=== PATIENT | female | born 1945 | race Caucasian/White ===

== ENCOUNTER → 2016-05-20 | Outpatient (CLI) | payer OTHER ==
--- NOTE | 2016-05-21 07:49 | XR ---
EXAMINATION TYPE: XR Hip Complete RT DATE OF EXAM: 05/20/2016 2:58 PM CLINICAL HISTORY: pain TECHNIQUE: AP and frogleg views of the right hip are obtained. COMPARISON: None. FINDINGS: There is no acute fracture/dislocation evident. The joint space appears moderately to se verely narrowed. The overlying soft tissue appears unremarkable. IMPRESSION: 1. There is no acute fracture or dislocation. ICD 10 NO FRACTURE, INITIAL EVALUATION
--- NOTE | 2016-05-21 07:49 | XR ---
EXAMINATION TYPE: XR lumbosacral spine min 4V DATE OF EXAM: 05/20/2016 2:58 PM CLINICAL HISTORY: pain COMPARISON: NONE TECHNIQUE: Frontal, lateral, and oblique images of the lumbar spine are obtained. FINDINGS: There are 5 lumbar type vertebral bodies identified. The lumbar spine shows satisfactory alignment without evidence of acute fracture or dislocation. Vertebral body heights are within normal limits. Severe multilevel degenerative disc disease is noted with vacuum disc seen at most levels. G rade 1 anterolisthesis L4 on L5 of 3.8 mm. Severe lower lumbar facet joint arthropathy. The overlyi ng soft tissue appears unremarkable. IMPRESSION: No acute fracture or dislocation is seen in the lumbar spine. Severe degenerative change s as noted. ICD 10 NO FRACTURE, INITIAL EVALUATION
== END | disposition home or self-care (01) ==
LOC: RADXRYALE 14:37
PROVIDERS: ATTEND Nurse Practitioner
DX: M47.816 Spondylosis without myelopathy or radiculopathy, lumbar region (principal); M25.551 Pain in right hip
CPT/HCPCS: 72110; 73502

== ENCOUNTER → 2016-06-22 | Outpatient (CLI) | payer OTHER ==
[2016-06-22 14:17] LABS: EKG EKG PERFORMED
[2016-06-22 15:21] LABS: Basophils % (A) 1 %; CH 30.5; CHCM 33.4; Eosinophils # (A) 0.1 k/uL (0-0.7); Eosinophils % (A) 2 %; HCT 37.5 % (34.0-46.0); HDW 2.52; HGB 12.3 gm/dL (11.4-16.0); Luc # (Auto) 0.11; Luc % (Auto) 2; Lymphocytes % (A) 19 %; MCHC 32.8 g/dL (31.0-37.0); MCV 91.6 fL (80.0-100.0); Mean Platelet Volume 7.4; Monocytes # (A) 0.3 k/uL (0-1.0); Monocytes % (A) 5 %; Neutrophils # (A) 3.8 k/uL (1.3-7.7); Neutrophils % (A) 71 %; RDW 12.7 % (11.5-15.5); WBC 5.3 k/uL (3.8-10.6); WBC (Perox) 5.56
[2016-06-22 15:31] LABS: ALT 37 U/L (9-52); AST 25 U/L (14-36); Alkaline Phosphatase 68 U/L (38-126); Anion Gap 12 mmol/L; Blood Urea Nitrogen 30 mg/dL (7-17); Calcium 9.4 mg/dL (8.4-10.2); Carbon Dioxide 28 mmol/L (22-30); Chloride 103 mmol/L (98-107); Glucose 83 mg/dL (74-99); Non-African American GFR(MDRD) >60 (>60 ml/min/1.73 sqM); Potassium 4.3 mmol/L (3.5-5.1); Sodium 143 mmol/L (137-145); Total Bilirubin 0.9 mg/dL (0.2-1.3); Total Protein 7.2 g/dL (6.3-8.2)
[2016-06-22 15:32] LABS: Partial Thromboplastin Time 24.5 sec (22.0-30.0); Prothrombin Time 10.4 sec (9.0-12.0)
[2016-06-22 17:19] LABS: Appearance,Urine Clear (Clear); Bilirubin,Urine Negative (Negative); Glucose,Urine (UA) Negative (Negative); Ketones,Urine Negative (Negative); Leukocyte Esterase,Urine Negative (Negative); Nitrite,Urine Negative (Negative); PH, Urine 5.5 (5.0-8.0); Protein,Urine Negative (Negative); Specific Gravity,Urine 1.022 (1.001-1.035); UA Billing (MACRO vs. MICRO) CHEM; Urobilinogen,Urine <2.0 mg/dL (<2.0)
== END | disposition home or self-care (01) ==
LOC: LABPAT 13:28
PROVIDERS: ATTEND Orthopaedic Surgery
DX: Z01.812 Encounter for preprocedural laboratory examination (principal); Z01.810 Encounter for preprocedural cardiovascular examination
CPT/HCPCS: 80053; 81003; 85025; 85610; 85730; 87070; 93005

== ENCOUNTER 2016-06-29 06:03 | Inpatient (IN) | payer OTHER ==
[2016-06-26 13:04] VITALS: BMI 39.6
[~2016-06-29 06:03] MED LIST: ACETAMINOPHEN TAB 500 MG TAB PO ONE; FAMOTIDINE 20 MG/2 ML VIAL IV PRN; HYDROmorphone 1 MG/ML 1 ML SYRINGE IVP PRN; LACTATED RINGERS 1,000 ML IV SCH; LIDOCAINE 1% 20 ML VIAL (10MG/ML) FOR IV START INTRADERMA PRN; MELOXICAM 7.5 MG TAB PO ONE; MIDAZOLAM 2 MG/2 ML VIAL IV PRN; ONDANSETRON 4 MG/2 ML VIAL IVP PRN; Pre Op ABX Message 1 EACH MISC MISCELLANE ONE; TRANEXAMIC ACID 1,000 MG in SODIUM CHLORIDE 0.9% 100 ML IVPB ONE
[2016-06-29] MEDS ORDERED: VANCOMYCIN 1,500 MG in SODIUM CHLORIDE 0.9% 250 ML IVPB STA (11:32)
[2016-06-29] MEDS ORDERED: HEPARIN SODIUM,PORCINE 10,000 UNIT/ML 1 ML VIAL ONE (15:19)
[2016-06-29] MEDS ORDERED: MIDAZOLAM 2 MG/2 ML VIAL ONE (15:19)
[2016-06-29] MEDS ORDERED: SODIUM CHLORIDE 0.9% IRRIG 1,000 ML BTL IRRIGATION ONE (15:19)
[2016-06-29] MEDS: ROPIVACAINE 246.25 MG, EPINEPHrine 0.5 MG, KETOROLAC 30 MG, cloNIDine HCL/PF 80 MCG, WA... MISCELLANE ONE ×10 (15:53→16:26)
[2016-06-29] MEDS ORDERED: LACTATED RINGERS 1,000 ML IV ONE ×2 (16:21→18:06)
--- NOTE | 2016-06-29 16:51 | P.OP ---
Date of Procedure: 06/29/16 Preoperative Diagnosis: Severe osteoarthritis right hip Postoperative Diagnosis: Severe osteoarthritis right hip Procedure(s) Performed: Right total hip arthroplasty with a direct anterior approach Implants: Arango and nephew Polarstem size 3 standard [employer]hew R3, 3 hole acetabular shell, 52 mm [employer] reflection 6.5 mm cancellus screw, 20 mm 2 [employer] R3, XLPE 20 acetabular liner [employer]hew Oxinium femoral head 36 m, +0 All components were press-fit. The articulation is ceramic on polyethylene. Anesthesia: spinal Surgeon: Dany Guan Insurance Claims Adjuster #1: Jacquelyn Villanueva Estimated Blood Loss (ml): 200 (62cc returned with cell saver) Pathology: other (Femoral head) Condition: stable Disposition: PACU Indications for Procedure: After failure of conservative treatment we discussed the surgical and nonsurgical treatment options at length. Patient wishes to proceed with a total hip arthroplasty with a direct anterior approach. Complications specific to this procedure were discussed at length, including but not limited to infection, leg length discrepancy, dislocation, and nerve injury. Patient is aware of all these complications and informed consent was obtained Operative Findings: The operative findings are consistent with severe osteoarthritis of the right hip Description of Procedure: Patient was seen and evaluated in the preoperative area, consent was reviewed, and the surgical site was marked with a skin marker. Patient was then brought to the operating room and given prophylactic antibiotics intravenously. 1 g of Tranexamic acid was also given. A spinal anesthetic was administered by the anesthesia department. A Brumfield catheter was then placed by the nursing staff. The patient was then placed on the hand table with the bony prominences well- padded. The hip area was then prepped and draped in usual sterile fashion. A universal timeout was then performed, which confirmed the patient's name, surgical site, ALLERGIES, and procedure being performed. Next the incision site was located at 1 cm distal and 1 cm lateral to the anterior superior iliac spine. The skin and subcutaneous tissues were sharply incised. Incision was carefully dissected down to the fascia overlying the tensor fascia harley muscle. This fascia was then incised in line with the incision. Next, using blunt finger dissection, the tensor fascia harley muscle was dissected off its investing fascia. The muscle was then carefully retracted laterally with a cobra retractor over the lateral neck of the femur. Next, the circumflex vessels were identified and cauterized using the AquaMantis device. The anterior hip capsule was then exposed. The capsule was then opened and an inverted T fashion. Retention sutures were placed in the inferior arms of the capsule. Cobra retractors were then placed intracapsularly. The proximal femur was then visualized. The femoral neck was then osteotomized appropriate level above the lesser trochanter. Small amount of traction was placed with the hand table. A small wedge of bone was then removed from the remaining femoral head. Next, using a corkscrew femoral head was easily removed from the acetabulum. On gross visual inspection, the femoral head had complete loss of articular cartilage in multiple periarticular osteophytes. Attention was then turned to the acetabulum. the acetabulum was exposed and any remaining labrum was excised. Sequential reaming of the acetabulum was performed using fluoroscopic guidance. When the appropriate size was reached, a trial was then placed. The position and fit of the trial was checked with fluoroscopy. The trial was then removed. Then, using fluoroscopic guidance, the final implant was impacted at 20 of anteversion and 40 of abduction, and fully seated in the acetabulum. 2 screws were then placed in the acetabulum. Again fluoroscopy was used to check position of the screws. Next, the liner was then impacted, with a 20 elevated liner located in the anterior superior quadrant. Component locking was confirmed. Attention was then directed to the femur. With the aid of the Janae table, the femur was externally rotated to approximately 130, extended, and abducted under the opposite leg. A side hook was then placed under the proximal femur, and the side hook elevator was used to elevate the proximal femur. Retractors were then placed. A capsular release was performed, as well as a release of the conjoined tendon, which afforded excellent visualization of the proximal femur. Next, a box osteotome was used to lateralize the proximal femur. A ultrasonic hand solderer was then used to locate the femoral canal. Sequential broaching was then performed with appropriate size which afforded excellent fixation in the proximal femur. The calcar was then planed. A trial was then placed with appropriate head and neck, and the hip was gently reduced with the aid of the Janae table. Fluoroscopy was then used to check position of the components, as well as to ensure equal leg lengths. The hip was then gently dislocated and the trials were then removed. Final implants were then impacted and the hip was again reduced. Final fluoroscopic x-rays confirmed that the components were in anatomic position, as well as equal leg lengths. The hip was also taken through range of motion, and found to be stable. The hip was then copiously irrigated with antibiotic solution with pulsatile lavage. The hip was then irrigated with Irrisept solution. The soft tissues were then injected with ropivacaine solution. A second dose of 1 g of Tranexamic acid was given. the fascia was then closed with 2-0 strata fix suture. The subcutaneous tissue was closed with 3-0 Vicryl. The subcuticular tissue was closed with 30 strata fix suture. The skin was then closed with Dermabond tape. The patient was then transferred to the recovery room in stable condition. The Asst. Jacquelyn Villanueva was required due to the complexity of surgery, and the need for skilled surgical instruments inspector for positioning, draping, exposure, retraction, and closure of the wound.and closure of the wound.
[2016-06-29] MEDS ORDERED: HYDROcodone/APAP 7.5-325MG 1 EACH TAB PO PRN (17:11)
[2016-06-29] MEDS ORDERED: MAGNESIUM HYDROXIDE 2,400 MG/10 ML CUP PO PRN (17:11)
[2016-06-29] MEDS ORDERED: DIAZEPAM 5 MG TAB PO PRN ×2 (17:11)
[2016-06-29] MEDS ORDERED: HYDROmorphone 1 MG/ML 1 ML SYRINGE IVP PRN ×3 (17:11)
[2016-06-29] MEDS ORDERED: NALOXONE 0.4 MG/ML 1 ML VIAL IV PRN (17:11)
[2016-06-29] MEDS ORDERED: ONDANSETRON 4 MG/2 ML VIAL IVP PRN (17:11)
--- NOTE | 2016-06-29 17:33 | XR ---
EXAMINATION TYPE: XR Hip Limited RT DATE OF EXAM: 06/29/2016 5:29 PM COMPARISON: 05/20/2016 HISTORY: Hip surgery TECHNIQUE: Single view FINDINGS: There is a right total hip prosthesis. Components are in anatomic position. IMPRESSION: Hip prosthesis without sign of a complicating process.
[2016-06-29 18:06] VITALS: RESP 16
[2016-06-29] MEDS: SENNOSIDES-DOCUSATE SODIUM 1 EACH TAB PO SCH (20:54)
[2016-06-29] MEDS: SODIUM CHLORIDE 0.9% 1,000 ML IV SCH (20:54)
[2016-06-29] MEDS: ASPIRIN 325 MG TAB PO SCH (20:54)
[2016-06-29] MEDS ORDERED: VANCOMYCIN 1,500 MG in SODIUM CHLORIDE 0.9% 250 ML IVPB ONE (21:00)
[2016-06-29] MEDS: HYDROcodone/APAP 7.5-325MG 1 EACH TAB PO PRN (22:25)
[2016-06-29] MEDS: hydrOXYzine PAMOATE 25 MG CAP PO PRN (22:26)
--- NOTE | 2016-06-29 22:50 | FL ---
EXAMINATION TYPE: FL guidance operating room, XR Hip Limited RT DATE OF EXAM: 06/29/2016 4:51 PM CLINICAL HISTORY: Right hip advanced osteoarthritis. TECHNIQUE: Fluoroscopy. Limited intraoperative views right hip. COMPARISON: Right hip x-ray May 20, 2016. FINDINGS: Fluoroscopic guidance was provided during total right hip arthroplasty procedure performed by Dr. Guan. A total of 48 seconds of fluoroscopic time was utilized during the procedure and 2 spot intraoperative images are acquired. Intraoperative images acquired show metallic hardware from total right hip arthroplasty well seated i n position on single AP projection. IMPRESSION: As Above.
[2016-06-30] MEDS: hydrOXYzine PAMOATE 25 MG CAP PO PRN ×2 (04:46→18:36)
[2016-06-30] MEDS: HYDROcodone/APAP 7.5-325MG 1 EACH TAB PO PRN ×3 (04:46→18:35)
[2016-06-30] MEDS: ASPIRIN 325 MG TAB PO SCH ×2 (07:49→20:53)
[2016-06-30] MEDS: MELOXICAM 7.5 MG TAB PO SCH (07:49)
[2016-06-30 08:28] LABS: Basophils % (A) 0 %; CH 30.4; CHCM 33.2; Eosinophils % (A) 0 %; HCT 33.4 % (34.0-46.0); HDW 2.61; Luc # (Auto) 0.12; Luc % (Auto) 1; Lymphocytes # (A) 1.1 k/uL (1.0-4.8); Lymphocytes % (A) 12 %; MCH 30.2 pg (25.0-35.0); MCHC 32.8 g/dL (31.0-37.0); MCV 91.8 fL (80.0-100.0); Mean Platelet Volume 7.6; Monocytes # (A) 0.5 k/uL (0-1.0); Monocytes % (A) 5 %; Neutrophils % (A) 82 %; RBC 3.64 m/uL (3.80-5.40); RDW 12.8 % (11.5-15.5); WBC 9.7 k/uL (3.8-10.6)
--- NOTE | 2016-06-30 09:26 | P.PN ---
Subjective Principal diagnosis: S/P Right SINDHU This is a 71-year-old female who is status post right total hip arthroplasty. Today's postoperative day #1. She is seen and evaluated at bedside. Her pain is reasonably controlled. She has no new complaints at this time. Objective - Vital Signs Vital signs: Vital Signs Temp 97.2 F L 06/30/16 01:45 Pulse 68 06/30/16 01:45 Resp 16 06/30/16 01:45 BP 119/62 06/30/16 01:45 Pulse Ox 96 06/30/16 01:45 Intake & Output 06/29/16 06/30/16 06/30/16 18:59 06:59 18:59 Intake Total 2250 1360 120 Output Total 250 425 100 Balance 2000 935 20 Intake: IV 2250 860 Sodium Chloride 0.9% 1, 860 000 ml @ 70 mls/hr IV . [id number] SYDNEE Rx#:[id number] Oral 500 120 Output: Urine 100 425 100 Uretheral ([place]) 425 100 Estimated Blood Loss 150 Other: Voiding Method Indwelling Catheter - Exam The patient does not appear in acute distress. Alert and orientated 3. Dressing is clean dry and intact. Calf is soft and nontender. Good foot and ankle motion without difficulty. Sensation and circulatory status is intact. - Labs CBC & Chem 7: 06/30/16 07:58 Labs: Abnormal Lab Results - Last 24 Hours (Table) 06/30/16 Range/Units 07:58 RBC 3.64 L (3.80-5.40) m/uL Hgb 11.0 L (11.4-16.0) gm/dL Hct 33.4 L (34.0-46.0) % Neutrophils # 8.0 H (1.3-7.7) k/uL Assessment and Plan (1) Status post right hip replacement Status: Acute (2) Primary osteoarthritis of right hip Status: Acute Plan: Continue routine postoperative care. Anticoagulation with aspirin. Physical therapy and pain control. Anticipate discharge to home tomorrow.
[2016-06-30] MEDS: SODIUM CHLORIDE 0.9% 1,000 ML IV SCH ×2 (13:45→20:54)
--- NOTE | 2016-06-30 15:05 | CONS ---
DATE OF CONSULTATION: Reason for consultation is preoperative recommendations regarding antihypertensive medications and perioperative complication management. Patient is a very pleasant 71-year-old female, admitted for elective right hip arthroplasty. Patient is clinically doing well. Patient denied any fever, chills. Patient denied any nausea, vomiting, abdominal pain, dysuria. Patient denied any cough. Patient's CBC did not show any leukocytosis. Patient does not have any signs or symptoms of sepsis. No basic metabolic profile is available. Patient's significant history is hypertension. REVIEW OF SYSTEMS: CONSTITUTIONAL: No fever, no malaise, no fatigue. HEENT: No recent visual problems or hearing problems. Denied any sore throat. CARDIOVASCULAR: No chest pain, orthopnea, PND, no palpitations, no syncope. PULMONARY: No shortness of breath, no cough, no hemoptysis. GASTROINTESTINAL: No diarrhea, no nausea, no vomiting, no abdominal pain. Normoactive bowel sounds. NEUROLOGICAL: No headaches, no weakness, no numbness. HEMATOLOGICAL: Denies any bleeding or petechiae. GENITOURINARY: Denies any burning micturition, frequency, or urgency. MUSCULOSKELETAL/RHEUMATOLOGICAL: Denies any joint pain, swelling, or any muscle pain. ENDOCRINE: Denies any polyuria or polydipsia. The rest of the 14 point review of systems is negative. PAST MEDICAL HISTORY: Significant for asthma, hyperlipidemia, hypertension, osteoarthritis, hypothyroidism, breast surgery, section, orthopedic surgery and tonsillectomy. SOCIAL HISTORY: Denied any smoking, alcohol abuse or any drug abuse. Family history is significant for cancer in the family. LABORATORY DATA: As mentioned above. PHYSICAL EXAMINATION: VITAL SIGNS: Temperature 97.2, pulse of 68, respiratory rate of 16, blood pressure 119/62, saturating at 96% on room air. PHYSICAL EXAMINATION: GENERAL: The patient is alert and oriented x3, not in any acute distress. Well developed, well nourished. HEENT: Pupils are round and equally reacting to light. EOMI. No scleral icterus. No conjunctival pallor. Normocephalic, atraumatic. No pharyngeal erythema. No thyromegaly. CARDIOVASCULAR: S1 and S2 present. No murmurs, rubs, or gallops. PULMONARY: Chest is clear to auscultation, no wheezing or crackles. ABDOMEN: Soft, nontender, nondistended, normoactive bowel sounds. No palpable organomegaly. EXTREMITIES: No cyanosis, clubbing, or pedal edema. NEUROLOGICAL: Gross neurological examination did not reveal any focal deficits. SKIN: No rashes. MUSCULOSKELETAL: Defer to Orthopedic Surgery. ASSESSMENT AND PLAN: 1. Status post right hip arthroplasty, pain management and deep venous thrombosis prophylaxis as per Primary Service. 2. Asthma without any acute exacerbation. Continue albuterol on as-needed basis. 3. Hypertension. Hold off antihypertensives temporarily. Probably can be resumed upon discharge depending on her blood pressures tomorrow. 4. Hypothyroidism, continue with levothyroxine at present dose. No further intervention at this point of time. 5. Osteoarthritis. Management as per Primary Service. Thank you for letting me participate in this patient's care. Patient will need to follow stephanie Escobar in about a week after discharge.
[2016-06-30] MEDS: SENNOSIDES-DOCUSATE SODIUM 1 EACH TAB PO SCH (19:53)
[2016-06-30] MEDS ORDERED: DULoxetine HCL 60 MG CAPSULE.DR PO SCH (21:00)
[2016-06-30] MEDS ORDERED: ATORVASTATIN 20 MG TAB PO SCH (21:00)
[2016-07-01] MEDS: HYDROcodone/APAP 7.5-325MG 1 EACH TAB PO PRN ×3 (01:42→12:49)
[2016-07-01] MEDS: hydrOXYzine PAMOATE 25 MG CAP PO PRN ×2 (01:42→06:47)
[2016-07-01] MEDS ORDERED: LEVOTHYROXINE 137 MCG TAB PO SCH (06:30)
[2016-07-01] MEDS: MELOXICAM 7.5 MG TAB PO SCH (07:35)
[2016-07-01] MEDS: ASPIRIN 325 MG TAB PO SCH (07:35)
[2016-07-01] MEDS: SODIUM CHLORIDE 0.9% 1,000 ML IV SCH (07:36)
--- NOTE | 2016-07-01 08:39 | P.DS ---
Providers Date of admission: 06/29/16 11:57 Expected date of discharge: 07/01/16 Attending physician: Dany Guan Consults: 06/29/16 17:11 Consult Physician Routine Consulting Provider: Tabitha Rodriguez Consult Reason/Comments: medical management Do you want consulting provider notified?: Yes Primary care physician: Avis Escobar - Discharge Diagnosis(es) (1) Status post right hip replacement Current Visit: Yes Status: Acute (2) Primary osteoarthritis of right hip Current Visit: Yes Status: Acute Hospital Course: This is a pleasant 71-year-old female who was last seen in our office with complaints of right hip pain. Patient has known history of degenerative arthritis of the right hip and presented to discuss options. After discussion consideration the patient elected to proceed with a right total hip arthroplasty. Patient was seen preoperatively medically cleared for surgery her primary care physician. Patient was admitted to [facility] and underwent right total hip arthroplasty. The procedure was performed without complications or sequelae. The patient has done well postoperatively. pain has been are reasonably controlled and is progressing with physical therapy. The patient has no new complaints today. Patient denies shortness of breath, nausea or abdominal pain. The patient appears comfortable and in no acute distress. Dressing is clean dry and intact. Incision is fine with no erythema or active drainage. Calf is soft and nontender. The patient has good foot and ankle motion without difficulty. Lower extremities are neurovascularly intact. The patient is orthopedically stable for discharge Pertinent Studies: Laboratory Tests 06/30/16 07:58 WBC 9.7 RBC 3.64 L Hgb 11.0 L Hct 33.4 L MCV 91.8 MCH 30.2 MCHC 32.8 Patient Condition at Discharge: Good Plan - Discharge Summary New Discharge Prescriptions: Aspirin 325 mg PO BID #60 tab HYDROcodone/APAP 7.5-325MG [[place] 7.5] 1 - 2 each PO Q6HR PRN #90 tab PRN Reason: Pain Sennosides-Docusate Sodium [Senokot-S] 2 tab PO DAILY #60 tablet Discharge Medication List Alendronate Sodium [Fosamax] 70 mg PO MO 06/26/16 [History] Ascorbic Acid [Vitamin C] 1,000 mg PO DAILY 06/26/16 [History] Aspirin [Adult Low Dose Aspirin EC] 81 mg PO DAILY 06/26/16 [History] B Complex-Vit C-Vit E-Zinc [Z-Bec] 1 tab PO DAILY 06/26/16 [History] Calcium Carbonate/Vitamin D3 [Caltrate 600 Plus D3 Tablet] 1 tab PO BID [History] DULoxetine HCL [Cymbalta] 60 mg PO HS 06/26/16 [History] Diclofenac Potassium [Cataflam] 50 mg PO BID 06/26/16 [History] Fexofenadine HCl [Dee Allergy] 180 mg PO DAILY 06/26/16 [History] Fish Oil/Dha/Epa [Fish Oil 1,200 mg Fish Oil] 1 cap PO DAILY 06/26/16 [History] HYDROcodone/APAP 7.5-325MG [[place] 7.5-325] 1 tab PO Q4H PRN 06/26/16 [History] Levothyroxine Sodium [Synthroid] 137 mcg PO DAILY 06/26/16 [History] Losartan/Hydrochlorothiazide [Losartan-Hctz 100-12.5 mg Tab] 1 tab PO DAILY 03/02 [History] Multivitamins, Thera [Multivitamin] 1 tab PO DAILY 06/26/16 [History] Simvastatin [Zocor] 40 mg PO HS 06/26/16 [History] Aspirin 325 mg PO BID #60 tab 07/01/16 [Rx] HYDROcodone/APAP 7.5-325MG [[place] 7.5] 1 - 2 each PO Q6HR PRN #90 tab 07/01/16 [ Rx] Sennosides-Docusate Sodium [Senokot-S] 2 tab PO DAILY #60 tablet 07/01/16 [Rx] Follow up Appointment(s)/Referral(s): Dany Guan DO [Doctor of Osteopathic Medicine] - 2 Weeks Activity/Diet/Wound Care/Special Instructions: [facility] - Weightbearing as tolerated with walker Daily dressing changes Keep incision clean and dry [facility] with questions or concerns [phone] Discharge Disposition: HOME WITH HOME HEALTH SERVICES
[2016-07-01] MEDS ORDERED: LORATADINE 10 MG TAB PO SCH (09:00)
[2016-07-01] MEDS ORDERED: NON-FORMULARY DRUG (Aspirin [Adult Low Dose Aspirin Ec] 81 MG) PO SCH (09:00)
[2016-07-01 10:55] LABS: CH 30.5; CHCM 32.8; HCT 31.9 % (34.0-46.0); HDW 2.63; HGB 10.1 gm/dL (11.4-16.0); MCH 29.7 pg (25.0-35.0); MCHC 31.7 g/dL (31.0-37.0); MCV 93.5 fL (80.0-100.0); Mean Platelet Volume 8.4; RBC 3.41 m/uL (3.80-5.40); WBC 8.9 k/uL (3.8-10.6)
[2016-07-01 13:53] LABS: Appearance,Urine Clear (Clear); Bilirubin,Urine Negative (Negative); Glucose,Urine (UA) Negative (Negative); Ketones,Urine Negative (Negative); Leukocyte Esterase,Urine Negative (Negative); Nitrite,Urine Negative (Negative); PH, Urine 5.5 (5.0-8.0); Protein,Urine Negative (Negative); Specific Gravity,Urine 1.023 (1.001-1.035); UA Billing (MACRO vs. MICRO) CHEM; Urobilinogen,Urine <2.0 mg/dL (<2.0)
[2016-07-01 13:58] VITALS: BP 124/84; PULSE 73; TEMP 98.8
--- NOTE | 2016-07-01 15:24 | PN ---
DATE OF SERVICE: 07/01/2016 This 71-year-old woman was admitted with right hip arthroplasty, is being closely monitored. The patient had a mild fever yesterday. No chest pain or palpitation. No fever. Orthopedics is also planning discharge also at this time. The hemoglobin is found to be 11. PAST MEDICAL HISTORY: Reviewed. REVIEW OF SYSTEMS: CARDIOVASCULAR SYSTEM: No angina or palpitations. RESPIRATORY: No cough or hemoptysis. GI: No nausea. : No dysuria. MUSCULOSKELETAL: As mentioned earlier. Current medications are reviewed and include: 1. Gardner 7.5 q.6 p.r.n. 2. Ecotrin 325 mg p.o. b.i.d. 3. Lipitor 20 mg q.h.s. 4. Valium 2.5 q.8 p.r.n. 5. Cymbalta 60 mg q.h.s. 6. Dilaudid. 7. Vistaril. 8. Synthroid 137 mcg p.o. daily. 9. Claritin 10 mg p.o. daily. 10. Milk of magnesia. 11. Mobic 7.5 p.o. daily. 12. Narcan 0.2 q.2 p.r.n. 13. Zofran. 14. Senokot-S 2 tablets q.h.s. PHYSICAL EXAM: Patient is alert and oriented x3. Pulse 73, blood pressure 125/84, respirations 16, temperature 98.8, pulse ox 93% on room air. HEENT: Conjunctivae normal. NECK: No jugular venous distention. CARDIOVASCULAR: S1, S2, muffled. RESPIRATORY: Breath sounds diminished at the bases. A few scattered rhonchi, no crackles. Abdomen is soft and nontender, no mass palpable. EXTREMITIES: Legs status post right hip arthroplasty. NERVOUS SYSTEM: Higher function as mentioned. Moves all 4 limbs, no focal motor deficits. LYMPHATICS: No lymph node enlargement in the neck, groin or axillae. SKIN: No ulcer, rash or bleeding. Labs are noted. ASSESSMENT: 1. Status post right hip arthroplasty. 2. Anemia, normocytic, possibly dilutional. 3. Rule out irregular cardiac rhythm. 4. History of asthma. 5. Hypertension. 6. Hyperlipidemia. 7. Degenerative joint disease. 8. Hypothyroidism. 9. Asthmatic bronchitis. 10. History of deep venous thrombosis. 11. History of breast surgery. 12. History of anxiety, depression. 13. FULL CODE. RECOMMENDATION: In this 71-year-old woman who presented with multiple medical issues, will monitor the patient closely. Continue with the current medications, continue with the symptomatic treatment. Otherwise, recommend DVT prophylaxis and also recommend CBC and UA with micro. Also recommend a baseline EKG. Recommend follow up with the primary physician closely. Further recommendations to follow. See orders for further details.
== END 2016-07-01 18:00 | disposition home health service (06) | DRG 470 ==
LOC: 2ORMAIN 11:57 → 3SUR 17:24
PROVIDERS: ADMIT Orthopaedic Surgery; ATTEND Orthopaedic Surgery
PROC: 0SR904A Replacement of Right Hip Joint with Ceramic on Polyethylene Synthetic Substitute, Uncemented, Open Approach (ICD-10-PCS; principal; 2016-06-29 15:20)
DX: M16.11 Unilateral primary osteoarthritis, right hip (principal); D64.9 Anemia, unspecified; I10 Essential (primary) hypertension; E03.9 Hypothyroidism, unspecified; E78.5 Hyperlipidemia, unspecified; J45.909 Unspecified asthma, uncomplicated; Z86.718 Personal history of other venous thrombosis and embolism; Z79.899 Other long term (current) drug therapy; Z79.82 Long term (current) use of aspirin
CPT/HCPCS: 73501; 81003; 85025; 85027; 86850; 86891; 86900; 86901; 87077; 87086; 87186; 88300; 93005

== ENCOUNTER → 2017-03-04 | Outpatient (CLI) | payer MEDICARE, OTHER ==
--- NOTE | 2017-03-08 08:16 | MM ---
Reason for exam: screening (asymptomatic). Last mammogram was performed 1 year and 3 months ago. History: Patient is postmenopausal and is nulliparous. Reductions of both breasts, 1960. Physical Findings: A clinical breast exam by your physician is recommended on an annual basis and results should be correlated with mammographic findings. MG 3D Screening Mammo W/Cad Bilateral CC and MLO view(s) were taken. Prior study comparison: November 26, 2015, bilateral MG screening mammo w CAD. September 13, 2012, CAD bilateral diagnostic mammogram. There are scattered fibroglandular densities. No significant changes when compared with prior studies. ASSESSMENT: Benign, BI-RAD 2 RECOMMENDATION: Routine screening mammogram of both breasts in 1 year.
== END | disposition home or self-care (01) ==
LOC: RADMAMWWP 15:15
PROVIDERS: ATTEND Family Medicine
DX: Z12.31 Encounter for screening mammogram for malignant neoplasm of breast (principal)
CPT/HCPCS: 77063; G0202

== ENCOUNTER → 2017-09-09 | Outpatient (CLI) | payer MEDICARE ==
--- NOTE | 2017-09-09 16:01 | CONS ---
CONSULTATION DATE OF SERVICE: 09/09/2017 72-year-old lady has been evaluated [facility] for possible obstructive sleep apnea-hypopnea syndrome. HISTORY OF PRESENT ILLNESS/SLEEP-WAKE EVALUATION: Patient usual sleep schedule on working days from around 11:30 p.m. until 6:30 or 7:00 a.m. and on weekends from 11:30 p.m. to 9:30 or 10:00 a.m. Sometimes she has problems with a falling asleep. Has TV set in bedroom. Prefers to sleep on the side position. She snores according to her and it is extremely loud snoring and she wakes up multiple times from sleep and some episodes of nocturia. In the morning, patient wakes up tired, feels sleepy during the day. [place] Sleepiness Scale increased to 12. She has taken naps around 4:00 pm. No history of hypnagogic hallucinations, sleep paralysis or cataplexy. PAST MEDICAL HISTORY: Positive for hypertension, hyperlipidemia, hypothyroidism, polyarthritis, recently patient has been told about the lupus erythematosus, anxiety, depression, low bone density. PAST SURGICAL HISTORY: Status post right hip replacement, status post breast augmentation in 1961. MEDICATIONS: Duloxetine, , hydrocodone, simvastatin, losartan, hydrochlorothiazide, levothyroxine, diclofenac. SOCIAL HISTORY: Negative for smoking and for using alcohol. REVIEW OF SYSTEMS: Multiple awakenings from sleep, sleepiness during the day. FAMILY HISTORY: Hypertension, heart problems, hyperlipidemia, arthritis, bronchitis and snoring, pneumonia, cancer, thyroid problems. PHYSICAL EXAM: GENERAL lady without distress. VITAL SIGNS BP 140/71, HR 78, RR 16, height 5 feet 0, weight 224.6, BMI 43.7, temperature 98.6, oxygen saturation room air 98%. HEENT PERRLA, EOMI, evaluation of oropharynx showed extremely low position of soft palate. Restriction of nasal breathing. Nasal septum deviation. Wide neck 16-1/4 inches in circumference. NECK Supple, no JVD. Thyroid is not palpable. LUNGS Clear to percussion and to auscultation. Good air exchange. No wheezing or rhonchi. HEART S1, S2 regular. No murmurs, gallops, or rubs. ABDOMEN Obese. Soft and nontender. Bowel sounds are present. No organomegaly appreciated. EXTREMITIES No clubbing or cyanosis. RESTAURANT SERVER Awake, alert, and oriented X3. Cranial nerves 2 to 7 intact. There is no fasciculation or atrophy. noted. No focal deficits observed. IMPRESSION: 1. Snoring, multiple awakenings from sleep, extremely low position of soft palate, restriction of nasal breathing, wide neck, obstructive sleep apnea-hypopnea syndrome. 2. Obesity, BMI 43.7. 3. Restriction of nasal breathing for possible nasal septum deviation. 4. Hypertension. 5. Hyperlipidemia. 6. Hypothyroidism. 7. History of polyarthritis. 8. Recently patient was diagnosed with lupus erythematosus. 9. History of anxiety. 10.Depression. 11.Low bone density. 12.Status post right hip replacement. 13.Status post breast augmentation in 1961. PLAN: 1. Polysomnography for evaluation of patient's breathing during sleep. 2. CPAP/BiPAP titration if sleep study confirms obstructive sleep apnea-hypopnea syndrome. 3. Preferable position during sleep on the side. 4. No driving if patient feels any sleepiness. 5. I will see patient for follow up visit to explain results of testing and following plan. Thank you very much for referring this patient for consultation. Sincerely, Toni Gallegos MD, PhD, FAASM Diplomat of [place] [employer] [place] [employer] [facility] [place] MMODL / AMAURYN: [id number] /
== END | disposition home or self-care (01) ==
LOC: SLEEP 14:31
PROVIDERS: ATTEND Internal Medicine
DX: G47.33 Obstructive sleep apnea (adult) (pediatric) (principal); I10 Essential (primary) hypertension; E78.5 Hyperlipidemia, unspecified; E03.9 Hypothyroidism, unspecified; M13.0 Polyarthritis, unspecified; E66.9 Obesity, unspecified; L93.0 Discoid lupus erythematosus; M27.8 Other specified diseases of jaws; F41.9 Anxiety disorder, unspecified; F32.9 Major depressive disorder, single episode, unspecified; R06.9 Unspecified abnormalities of breathing; Z96.641 Presence of right artificial hip joint; Z98.890 Other specified postprocedural states; Z79.891 Long term (current) use of opiate analgesic; Z79.899 Other long term (current) drug therapy; Z68.41 Body mass index [BMI] 40.0-44.9, adult
CPT/HCPCS: 99211

== ENCOUNTER → 2018-05-02 | Outpatient (CLI) | payer MEDICARE ==
--- NOTE | 2018-05-02 15:38 | BD ---
EXAMINATION TYPE: Axial Bone Density DATE OF EXAM: 05/02/2018 COMPARISON: 11/26/2015 CLINICAL HISTORY: 72-year-old female screening for osteoporosis Height: 59.5 IN Weight: 217 LBS RISK FACTORS HISTORY OF: Surgery to Spine: YES RT HIP REPLACEMENT When: 2016 Family History of Osteoporosis: MOTHER AND GRANDMOTHER Active: MODERATE Postmenopausal woman: AGE 52 Lost more than 2 inches in height since high school: YES 3 " MEDICATIONS: Thyroid Medications: YES Which medication: Levothyroxine How Lon + YEARS Osteoporosis Medications: YES Which medication: Fosamax How Lon + YEARS Additional Medications: CALCIUM, VIT D, FOSAMAX, LEVOTHYROXINE, BLOOD PRESSURE MEDS, DEPRESSION MEDS, ANXIETY MEDS, TRAMADOL, CHOLESTEROL MEDS EXAM MEASUREMENTS: Bone mineral densitometry was performed using the [facility]. Bone mineral density as measured about the Lumbar spine is: ----- L1-L4(G/cm2): 1.098 T Score Values are as follows: ----- L2: -0.7 ----- L3: -0.9 ----- L4: 0.1 ----- L1-L4: -0.7 Bone mineral density has: Increased 13.0% since study of: 11/26/2015 PT HAD RT HIP REPLACEMENT IN 2015 Bone mineral density about the L hip (g/cm2): 0.747 T Score values are as follows: -----L Neck: -2.1 -----L Total: -1.4 Bone mineral density has: Decreased -0.5% since study of: 11/26/2015 IMPRESSION: Osteopenia (T Score between -2.5 and -1). There is slightly increased risk of fracture and the patient may be considered for treatment. Re-Screen 2-5 years. NOTE: T-SCORE=SD OF THE YOUNG ADULT MEAN.
--- NOTE | 2018-05-03 10:06 | MM ---
Reason for exam: screening (asymptomatic). Last mammogram was performed 1 year and 2 months ago. History: Patient is postmenopausal and is nulliparous. Reductions of both breasts, 1960. Physical Findings: A clinical breast exam by your physician is recommended on an annual basis and results should be correlated with mammographic findings. MG 3D Screening Mammo W/Cad Bilateral CC and MLO view(s) were taken. Prior study comparison: March 04, 2017, bilateral MG 3d screening mammo w/cad. November 26, 2015, bilateral MG screening mammo w CAD. There are scattered fibroglandular densities. Benign calcifications in the right breast. No suspicious abnormality. No significant changes when compared with prior studies. ASSESSMENT: Benign, BI-RAD 2 RECOMMENDATION: Routine screening mammogram of both breasts in 1 year.
== END | disposition home or self-care (01) ==
LOC: RADMAMWWP 13:39
PROVIDERS: ATTEND Family Medicine
DX: Z12.31 Encounter for screening mammogram for malignant neoplasm of breast (principal); M85.80 Other specified disorders of bone density and structure, unspecified site; Z13.820 Encounter for screening for osteoporosis
CPT/HCPCS: 77063; 77067; 77080

== ENCOUNTER → 2018-10-20 | Outpatient (CLI) | payer MEDICARE ==
[2018-10-20 15:48] LABS: HCT 41.1 % (34.0-46.0); HGB 13.4 gm/dL (11.4-16.0); MCHC 32.6 g/dL (31.0-37.0); MCV 88.9 fL (80.0-100.0); Mean Platelet Volume 7.9; Platelet Count 228 k/uL (150-450); RBC 4.63 m/uL (3.80-5.40); RDW 13.7 % (11.5-15.5); WBC 7.3 k/uL (3.8-10.6)
[2018-10-20 15:55] LABS: Albumin 4.8 g/dL (3.5-5.0); Calcium 9.8 mg/dL (8.4-10.2); Potassium 4.7 mmol/L (3.5-5.1); Total Protein 7.5 g/dL (6.3-8.2)
[2018-10-20 16:17] LABS: INR 0.9 (<1.2); Partial Thromboplastin Time 24.2 sec (22.0-30.0); Prothrombin Time 10.2 sec (9.0-12.0)
[2018-10-20 17:02] LABS: Appearance,Urine Clear (Clear); Bilirubin,Urine Negative (Negative); Blood,Urine Negative (Negative); Color,Urine Yellow; Glucose,Urine (UA) Negative (Negative); Ketones,Urine Negative (Negative); Leukocyte Esterase,Urine Small (Negative); Mucus,Urine Rare /hpf; Nitrite,Urine Negative (Negative); Protein,Urine Negative (Negative); RBC,Urine 1 /hpf (0-5); Specific Gravity,Urine 1.031 (1.001-1.035); Squamous Epithelial Cell,Urine 1 /hpf (0-4); Urobilinogen,Urine <2.0 mg/dL (<2.0); WBC,Urine 6 /hpf (0-5)
== END | disposition home or self-care (01) ==
LOC: LABPAT 15:10
PROVIDERS: ATTEND Orthopaedic Surgery
DX: Z01.812 Encounter for preprocedural laboratory examination (principal); M17.11 Unilateral primary osteoarthritis, right knee; Z51.81 Encounter for therapeutic drug level monitoring; Z79.01 Long term (current) use of anticoagulants
CPT/HCPCS: 36415; 80053; 81001; 85027; 85610; 85730; 87070

== ENCOUNTER 2018-11-01 10:57 | Day surgery (SDC) | payer MEDICARE ==
[~2018-11-01 10:57] MED LIST changes: -ACETAMINOPHEN TAB 500 MG TAB PO ONE; -FAMOTIDINE 20 MG/2 ML VIAL IV PRN; -HYDROmorphone 1 MG/ML 1 ML SYRINGE IVP PRN; -LACTATED RINGERS 1,000 ML IV SCH; -LIDOCAINE 1% 20 ML VIAL (10MG/ML) FOR IV START INTRADERMA PRN; -MELOXICAM 7.5 MG TAB PO ONE; -MIDAZOLAM 2 MG/2 ML VIAL IV PRN; -ONDANSETRON 4 MG/2 ML VIAL IVP PRN; -Pre Op ABX Message 1 EACH MISC MISCELLANE ONE; +ROPIVACAINE 246.25 MG, EPINEPHrine 0.5 MG, KETOROLAC 30 MG, cloNIDine HCL/PF 80 MCG, WA... MISCELLANE ONE; +ceFAZolin IN SWFI 2 GM/20 ML SYRINGE IVP ONE
[2018-11-01] MEDS: ACETAMINOPHEN TAB 500 MG TAB PO ONE ×2 (11:20→11:25)
[2018-11-01] MEDS ORDERED: DEXAMETHASONE SOD PHOSPHATE 10 MG/ML 1 ML VIAL IV ONE ×2 (11:20→11:25)
[2018-11-01] MEDS ORDERED: LACTATED RINGERS 1,000 ML IV ONE ×2 (11:20→13:20)
[2018-11-01] MEDS: MELOXICAM 7.5 MG TAB PO ONE ×2 (11:20→11:25)
[2018-11-01] MEDS ORDERED: ONDANSETRON 4 MG/2 ML VIAL IVP ONE ×2 (11:20→11:25)
[2018-11-01] MEDS ORDERED: LIDOCAINE 1% 20 ML VIAL (10MG/ML) FOR IV START INTRADERMA ONE ×2 (11:20→11:21)
[2018-11-01] MEDS ORDERED: DIAZEPAM 5 MG TAB PO PRN (11:26)
[2018-11-01] MEDS ORDERED: MAGNESIUM HYDROXIDE 2,400 MG/10 ML CUP PO PRN (11:26)
[2018-11-01] MEDS ORDERED: NALOXONE 0.4 MG/ML 1 ML VIAL IV PRN (11:26)
[2018-11-01] MEDS ORDERED: hydrOXYzine PAMOATE 25 MG CAP PO PRN (11:26)
[2018-11-01] MEDS ORDERED: HYDROmorphone 0.5 MG/0.5 ML SYRINGE IVP PRN ×3 (11:26)
[2018-11-01] MEDS ORDERED: HYDROcodone/APAP 5-325MG 1 EACH TAB PO PRN (11:26)
[2018-11-01] MEDS ORDERED: BISACODYL 10 MG SUPP RECTAL PRN (11:26)
[2018-11-01] MEDS ORDERED: ONDANSETRON 4 MG/2 ML VIAL IVP PRN (11:26)
[2018-11-01] MEDS ORDERED: NA PHOS,M-B/NA PHOS,DI-BA 133 ML ENEMA RECTAL PRN (11:26)
[2018-11-01] MEDS ORDERED: MIDAZOLAM (PF) 2 MG/2 ML VIAL IV ONE (11:59)
[2018-11-01] MEDS ORDERED: CLINDAMYCIN 900 MG in DEXTROSE 5% IN WATER 50 ML IVPB SCH ×2 (12:00)
[2018-11-01] MEDS ORDERED: MIDAZOLAM 2 MG/2 ML VIAL ONE (12:32)
[2018-11-01] MEDS ORDERED: diphenhydrAMINE 50 MG/ML 1 ML VIAL ONE (12:32)
[2018-11-01] MEDS ORDERED: fentaNYL (PF) 50 MCG/ML 2 ML AMP ONE (12:32)
[2018-11-01] MEDS ORDERED: TRANEXAMIC ACID 1,000 MG/10 ML VIAL ONE (12:32)
[2018-11-01] MEDS ORDERED: SODIUM CHLORIDE 0.9% 100 ML BAG ONE (12:32)
[2018-11-01] MEDS ORDERED: ROPIVACAINE 1,100 MG, SODIUM CHLORIDE 0.9% 500 ML 330 ML MISCELLANE PRN ×2 (13:31)
--- NOTE | 2018-11-01 13:56 | P.ANPRN ---
Procedure Note - Anesthesia - Nerve Block Performed Right Adductor Canal Infusion Time Out Performed: Yes Date of Procedure: 11/01/18 Location of Patient Procedure: PreOp Indication: Acute Post-Operative Pain, Dx/Pain Location (Right Knee) Specifically requested for management of pain by DrKamran: Dany Guan Sedation Type: Sedate with meaningful contact maintained Preparation: Sterile Prep, Sterile Dressing Position: Supine Catheter: Indwelling Needle Types: Pajunk Needle Gauge: 21 Technique: Ultrasound Injectate: 0.5% Ropivacaine (see comment for volume) (30 ml) Blood Aspirated: No Pain Paresthesia on Injection Noted: No Resistance on Injection: Normal Events: Uneventful and Well Tolerated
--- NOTE | 2018-11-01 14:06 | P.OP ---
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 The articulation is Oxinium on polyethylene. Anesthesia: spinal Surgeon: Dany Guan Asbestos Pipe Supervisor #1: Josephine Wilkins Estimated Blood Loss (ml): 50 Pathology: other (Bone and cartilage) Condition: stable Disposition: PACU Indications for Procedure: After failure of conservative treatment we discussed the surgical and nonsurgical treatment options at length. Patient wishes to proceed with a total knee arthroplasty. Complications specific to this procedure were discussed at length, including but not limited to infection, bleeding, stiffness, and nerve injury. Patient is aware of all these complications and informed consent was obtained Operative Findings: The operative findings are consistent with severe osteoarthritis of the right knee with a severe valgus deformity Description of Procedure: Patient was seen in the preoperative area consent was reviewed and operative site was marked with a skin marker. Patient was then brought to the operating room and given preoperative antibiotics intravenously. A spinal anesthetic was administered by the anesthesia department. A tourniquet was placed on the upper thigh and the lower extremity was prepped and draped in usual sterile fashion. A gram of transexamic acid was given. A universal timeout was then performed which confirmed the patient's name, surgical site, ALLERGIES, and consent. The lower extremity was then exsanguinated and tourniquet was inflated to 300 mmHg. A standard and anterior midline approach to the knee was performed. The skin and subcutaneous tissue was dissected down to the patellar tendon. A medial parapatellar arthrotomy was then performed. The knee was then extended, the patellar was everted, and the knee was again flexed. Anterior horns of both menisci were excised, and a minimal medial release was performed because of the valgus deformity of the knee.. On gross visual inspection, there was complete loss of articular cartilage in all 3 compartments of the knee. There was also significant cartilage damage in the lateral compartment. There were multiple periarticular osteophytes which were then removed with a Ronguer. The femoral canal was then opened with the appropriate drill, and the intramedullary femoral cutting guide was then placed and set for 4 of valgus. The distal femoral cutting block was then pinned in place, and the distal femur was then cut. The cutting block was then removed and the cut was checked for flatness. Next, the sizing guide was then placed and set for 3 external rotation based off of the epicondylar axis and Whitesides line. After the femur was sized, the appropriate 4-in-1 cutting block was then pinned in place. The anterior condyles were cut without notching. The posterior and chamfer cuts were pe rformed while protecting the collateral ligaments. The cutting block was then removed. Attention was then directed to the tibia. The remaining ACL was removed with a Ronguer, and the tibia was then gently subluxed forward with a large bent knee retractor. Any remaining menisci was excised. The posterior lateral corner was cauterized in order to cauterize the lateral geniculate artery. The extra medullary tibial cutting guide was then placed, set for the appropriate rotation, slope, and depth of resection. The proximal tibia cutting guide was then pinned in place. Proximal tibia was then cut and sized. The femoral trial was then placed. The box cutting guide was placed and then using the appropriate reamer, the bone was reamed for the box. Then the box osteotome was used to finish the reaming. Next trials were then placed with the appropriate-sized insert. The knee was able to fully extend and flex to 130 and was stable throughout all range of motion. The knee was then extended, patella everted. Patella was then measured, and then using an osteotomy guide, the patella was cut at the appropriate level. The patella was then measured and drilled and the patella trial was then placed. The knee was then taken through range of motion with the patella trial and the patella tracked normally. The knee was then extended patella trial was then removed and the patella was everted. Knee was then flexed and lug holes were drilled through the femoral trial and the femoral trial was then removed. The tibial was then exposed, and the tibial broach guide was then pinned in place after it was set for the appropriate rotation to allow for the most coverage without overhang. The tibia was then broached. The cut surfaces of bone were then irrigated with pulsatile lavage. The posterior structures were injected with the ropivacaine solution. The components were then opened, the cement was mixed, and the components were then cemented in place. The cement was allowed to harden with the knee in full extension. While the cement was hardening, the remaining soft tissues were injected with the ropivacaine solution. After the cemented hardened. The tourniquet was released, and hemostasis was obtained. A second gram of transexamic acid was given. The knee was again irrigated. The knee was again taken through range of motion and found to be stable throughout all range of motion of 0-130, and the patella tracked normally. The fascia was then closed with #2 strata fix suture. The subcutaneous tissue was closed with 3-0 Vicryl and 3-0 strata fix. Dermabond tape was used for the skin, and the patient was placed in a sterile dressing. Patient was then transferred to recovery room in stable condition. The special events assistant TONY Ortiz was required due the complexity surgery and the need for a skilled surgical aides teacher. She assisted in positioning, draping, retraction, and closure of the woundclosure of the wound.
--- NOTE | 2018-11-01 15:11 | XR ---
EXAMINATION TYPE: XR knee limited RT DATE OF EXAM: 11/01/2018 CLINICAL HISTORY: Right knee pain and arthritis status post total knee replacement. TECHNIQUE: Portable AP and crosstable lateral views of the right knee are obtained immediately posto peratively. COMPARISON: None FINDINGS: Metallic hardware from total right knee arthroplasty is seen and appears satisfactory in a lignment and position. There is evidence of recent surgery with diffuse subcutaneous gas and soft ti ssue swelling noted. IMPRESSION: METALLIC HARDWARE FROM TOTAL RIGHT KNEE ARTHROPLASTY IS SATISFACTORY IN ALIGNMENT.
[2018-11-01 15:53] VITALS: BMI 42.4
[2018-11-01] MEDS: SODIUM CHLORIDE 0.9% 1,000 ML IV SCH (19:10)
[2018-11-01] MEDS: ASPIRIN 325 MG TAB PO SCH (20:47)
[2018-11-01] MEDS: ceFAZolin IN SWFI 2 GM/20 ML SYRINGE IVP SCH (20:47)
[2018-11-01] MEDS ORDERED: DULoxetine HCL 60 MG CAPSULE.DR PO SCH (21:00)
[2018-11-01] MEDS ORDERED: LORATADINE 10 MG TAB PO SCH (21:00)
[2018-11-01] MEDS ORDERED: ATORVASTATIN 20 MG TAB PO SCH (21:00)
[2018-11-01] MEDS ORDERED: METOPROLOL SUCCINATE (ER) 50 MG TAB.ER.24H PO SCH (21:00)
[2018-11-01] MEDS ORDERED: SENNOSIDES-DOCUSATE SODIUM 1 EACH TAB PO SCH (21:00)
[2018-11-01] MEDS: HYDROcodone/APAP 5-325MG 1 EACH TAB PO PRN (21:48)
[2018-11-02 01:32] VITALS: TEMP 97.9
[2018-11-02] MEDS: SODIUM CHLORIDE 0.9% 1,000 ML IV SCH (03:27)
[2018-11-02] MEDS: ceFAZolin IN SWFI 2 GM/20 ML SYRINGE IVP SCH (05:17)
--- NOTE | 2018-11-02 06:00 | CONS ---
CONSULTATION DATE OF SERVICE: 11/01/2018 REASON FOR CONSULTATION: Advice regarding hypertension, hyperlipidemia requested by Dr. Guan. HISTORY OF PRESENT ILLNESS: This 73-year-old woman with a past medical history of asthma, GERD, hypertension, hyperlipidemia, history of hypothyroidism, asthmatic bronchitis, being followed by Dr. Gallegos in the outpatient setting underwent a right total knee arthroplasty for severe DJD by Dr. Guan. There is no history of chest pain. No history of palpitations. No history of headache, loss of consciousness, nausea, vomiting, diarrhea, fever, rigors, chills at this time. PAST MEDICAL HISTORY: History of DJD, history of asthma, hypertension, hyperlipidemia, hypothyroidism, history of asthmatic bronchitis, breast surgery, history of anxiety. MEDICATIONS: Mediations prior to admission include home medications are: 1. Cozaar 25 mg p.o. daily. 2. Synthroid 137 mcg p.o. daily. 3. [place] 7.5 b.i.d. p.r.n. 4. Fish oil 1 p.o. daily. 5. Dee 180 mg p.o. q.h.s. 6. Voltaren 50 mg p.o. b.i.d. 7. Cymbalta 60 mg q.h.s. 8. Vitamin D3, 4000 daily. 9. Caltrate 600 mg p.o. b.i.d. 10.Z-Bec 1 tablet p.o. daily. 11.Aspirin 81 mg p.o. daily. 12.Vitamin C 1000 mg p.o. daily. 13.Fosamax 70 mg p.o. Wednesday. 14.Vitamin E 400 units p.o. daily. 15.Zocor 40 mg q.h.s. 16.Multivitamins 1 p.o. daily. 17.Toprol XL 50 mg q.h.s. ALLERGIES: Allergies are CEPHALEXIN, PENICILLIN, CLINDAMYCIN. FAMILY HISTORY: History of cancer, kidney and prostate cancers. SOCIAL HISTORY: No history of smoking. No history of alcohol intake. REVIEW OF SYSTEMS: ENT: No diminished hearing or diminished vision. CARDIOVASCULAR SYSTEM: No angina. RESPIRATORY SYSTEM: No cough or hemoptysis. GI: No nausea. : No dysuria. NERVOUS SYSTEM: No numbness or weakness. ALLERGY/IMMUNOLOGY: Asthma. MUSCULOSKELETAL: As mentioned earlier. HEMATOLOGY/ONCOLOGY: No history of anemia. ENDOCRINE: No history of diabetes. Hypothyroidism. CONSTITUTIONAL: As mentioned earlier. DERMATOLOGY: Negative. RHEUMATOLOGY: Negative. PSYCHIATRY: As mentioned earlier. PHYSICAL EXAMINATION: The patient is alert and oriented x3. Pulse 64, blood pressure 113/59, respirations 16, temperature 97.8 pulse ox 100% on 2 L. HEENT: Conjunctivae normal. NECK: No jugular venous distention. CARDIOVASCULAR: S1, S2 muffled. RESPIRATORY: Breath sounds diminished at the bases. No rhonchi, no crackles. ABDOMEN: Soft, nontender. No mass palpable. LEGS: Status post right total knee arthroplasty. NERVOUS SYSTEM: Higher functions as mentioned. Moves all 4 limbs. No focal motor or sensory. LYMPHATICS: No lymphadenopathy of the neck, axillae or groin. JOINTS: As mentioned earlier. SKIN: No ulcer, rash or bleeding. LABS: The preop labs are reviewed include hematology is normal. Coags are normal. Chemistry shows BUN 23, otherwise within normal limits. UA shows 6 WBCs. DELORIS was positive . ASSESSMENT: 1. Status post right total knee joint arthroplasty. 2. Asthma. 3. Gastroesophageal reflux disease. 4. Hypertension. 5. Hyperlipidemia. 6. History of degenerative joint disease. 7. History of hypothyroidism. 8. History of asthmatic bronchitis. 9. History of deep vein thrombosis. 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 11.History of breast surgery. 12.History of cataracts. 13.Anxiety, depression. RECOMMENDATIONS AND DISCUSSION: This 73-year-old woman presented with multiple complex medical issues. Will monitor the patient closely. Continue the current medications and continue symptomatic treatment. Recommend resume the home medications. DVT prophylaxis. Repeat labs. I would recommend DVT prophylaxis per Ortho protocol. Further recommendations to follow. I would also recommend the patient to follow up closely with Dr. Gallegos in the outpatient setting. Home medications are ordered and further recommendations to follow. MMODL / IJN: [id number] / [facility]
[2018-11-02] MEDS ORDERED: LEVOTHYROXINE 137 MCG TAB PO SCH (06:30)
--- NOTE | 2018-11-02 07:30 | P.PN ---
Progress Note - Text Progress Note Date: 11/02/18 Postoperative day # 1 status post total knee arthroplasty, under spinal anesthesia, and adductor canal catheter placed for postoperative analgesia, currently at ropivacaine 0.2% 8 mL per hour and continuous infusion, visual analogue scale is 3-4/10, patient using oral pain medication for breakthrough pain. Assessment and plan= Acute postoperative pain, adductor canal catheter for pain control, pain is well controlled we'll continue the same management.
[2018-11-02 07:55] VITALS: BP 117/68; PULSE 56; RESP 16
[2018-11-02] MEDS: ASPIRIN 325 MG TAB PO SCH (08:49)
[2018-11-02] MEDS: HYDROcodone/APAP 5-325MG 1 EACH TAB PO PRN (08:56)
[2018-11-02] MEDS ORDERED: LOSARTAN 25 MG TAB PO SCH (09:00)
[2018-11-02] MEDS ORDERED: MELOXICAM 7.5 MG TAB PO SCH (09:00)
--- NOTE | 2018-11-02 09:01 | P.DS ---
Providers Expected date of discharge: 11/02/18 Attending physician: Dany Guan Consults: 11/01/18 11:26 Consult Physician Routine Consulting Provider: Tabitha Rodriguez Consult Reason/Comments: medical management Do you want consulting provider notified?: Yes Primary care physician: Sonali Gallegos - Discharge Diagnosis(es) (1) Osteoarthritis of right knee Current Visit: Yes Status: Acute (2) S/P total knee arthroplasty Current Visit: Yes Status: Acute Hospital Course: This is a 73-year-old female with known history of degenerative arthritis of the right knee. The patient presents for evaluation. After discussion and consideration patient elects to proceed with total knee arthroplasty. The patient is seen preoperatively by Dr. Guan and medically cleared for surgery by their primary care physician. Patient is admitted to [facility] on 11/01/2018 for total knee arthroplasty. The procedures performed without complication or sequelae. The patient is doing well postoperatively. Labs and vital signs are stable on day of discharge. On day of discharge patient's knee incision is healing well. There is minimal erythema. There is no drainage noted at this time. There is minimal soft tissue swelling to the knee. Patient has full foot and ankle motion without difficulty or pain. Calf is soft and nontender to palpation. Neurovascular status to the right lower extremity is intact. Patient is discharged home in good condition. Opioid start talking form is reviewed and signed at patient bedside. Please see med rec for accurate list of home medications. Plan - Discharge Summary Discharge Rx Participant: Yes New Discharge Prescriptions: New Aspirin 325 mg PO BID #60 tab HYDROcodone/APAP 5-325MG [[place] 5-325] 1 - 2 tab PO Q6HR PRN #56 tab PRN Reason: Pain Sennosides [Senokot] 1 tab PO BID #60 tablet No Action Multivitamins, Thera [Multivitamin] 1 tab PO DAILY Fish Oil/Dha/Epa [Fish Oil 1,200 mg Fish Oil] 1 cap PO DAILY B Complex-Vit C-Vit E-Zinc [Z-Bec] 1 tab PO DAILY Calcium Carbonate/Vitamin D3 [Caltrate 600 Plus D3 Tablet] 1 tab PO BID Ascorbic Acid [Vitamin C] 1,000 mg PO DAILY Fexofenadine HCl [Dee Allergy] 180 mg PO HS Aspirin [Adult Low Dose Aspirin EC] 81 mg PO DAILY Levothyroxine Sodium [Synthroid] 137 mcg PO DAILY DULoxetine HCL [Cymbalta] 60 mg PO HS Simvastatin [Zocor] 40 mg PO HS Alendronate Sodium [Fosamax] 70 mg PO MO HYDROcodone/APAP 7.5-325MG [[place] 7.5-325] 1 tab PO BID PRN PRN Reason: Pain Vitamin E (Dl,Tocopheryl Acet) [Vitamin E] 400 unit PO DAILY Metoprolol Succinate (ER) [Toprol Xl] 50 mg PO HS Diclofenac Sodium [Voltaren] 50 mg PO BID Losartan Potassium [Cozaar] 25 mg PO DAILY Cholecalciferol (Vitamin D3) [Vitamin D3] 4,000 unit PO DAILY Discharge Medication List Alendronate Sodium [Fosamax] 70 mg PO MO 06/26/16 [History] Ascorbic Acid [Vitamin C] 1,000 mg PO DAILY 06/26/16 [History] Aspirin [Adult Low Dose Aspirin EC] 81 mg PO DAILY 06/26/16 [History] B Complex-Vit C-Vit E-Zinc [Z-Bec] 1 tab PO DAILY 06/26/16 [History] Calcium Carbonate/Vitamin D3 [Caltrate 600 Plus D3 Tablet] 1 tab PO BID 06/26/16 [History] DULoxetine HCL [Cymbalta] 60 mg PO HS 06/26/16 [History] Fexofenadine HCl [Dee Allergy] 180 mg PO HS 06/26/16 [History] Fish Oil/Dha/Epa [Fish Oil 1,200 mg Fish Oil] 1 cap PO DAILY 06/26/16 [History] HYDROcodone/APAP 7.5-325MG [[place] 7.5-325] 1 tab PO BID PRN 06/26/16 [History] Levothyroxine Sodium [Synthroid] 137 mcg PO DAILY 06/26/16 [History] Multivitamins, Thera [Multivitamin] 1 tab PO DAILY 06/26/16 [History] Simvastatin [Zocor] 40 mg PO HS 06/26/16 [History] Cholecalciferol (Vitamin D3) [Vitamin D3] 4,000 unit PO DAILY 10/25/18 [History] Diclofenac Sodium [Voltaren] 50 mg PO BID 10/25/18 [History] Losartan Potassium [Cozaar] 25 mg PO DAILY 10/25/18 [History] Metoprolol Succinate (ER) [Toprol Xl] 50 mg PO HS 10/25/18 [History] Vitamin E (Dl,Tocopheryl Acet) [Vitamin E] 400 unit PO DAILY 10/25/18 [History] Aspirin 325 mg PO BID #60 tab 11/02/18 [Rx] HYDROcodone/APAP 5-325MG [[place] 5-325] 1 - 2 tab PO Q6HR PRN #56 tab 11/02/18 [Rx] Sennosides [Senokot] 1 tab PO BID #60 tablet 11/02/18 [Rx] Follow up Appointment(s)/Referral(s): Dany Guan DO [Doctor of Osteopathic Medicine] - 2 Weeks Activity/Diet/Wound Care/Special Instructions: Weightbearing as tolerated with a walker. CPM 5-6h daily. Leave dressing intact. May be removed by home care nurse or by patient in 10 days. May shower with dressing on. Please follow up with [facility] and call with any questions or concerns, . Discharge Disposition: HOME WITH HOME HEALTH SERVICES
[2018-11-02 09:33] LABS: Basophils % (A) 0 %; Eosinophils % (A) 0 %; HCT 35.2 % (34.0-46.0); HGB 11.2 gm/dL (11.4-16.0); Lymphocytes # (A) 1.1 k/uL (1.0-4.8); Lymphocytes % (A) 10 %; MCH 29.5 pg (25.0-35.0); MCHC 31.7 g/dL (31.0-37.0); Monocytes # (A) 0.3 k/uL (0-1.0); Monocytes % (A) 3 %; Neutrophils # (A) 9.7 k/uL (1.3-7.7); Neutrophils % (A) 87 %; Platelet Count 218 k/uL (150-450); RBC 3.79 m/uL (3.80-5.40); RDW 13.6 % (11.5-15.5); WBC 11.2 k/uL (3.8-10.6)
[2018-11-02] MEDS ORDERED: RIVAROXABAN 10 MG TAB PO SCH (11:00)
--- NOTE | 2018-11-02 17:10 | PN ---
PROGRESS NOTE DATE OF SERVICE: 11/02/2018 This 73-year-old woman who was admitted after right total knee arthroplasty is improving significantly. No chest pain. No palpitations. No fever. Patient has previous history of deep vein thrombosis. PHYSICAL EXAM: Alert and oriented x3. Pulse is 56, blood pressure 107/60, respiration 16, temperature 97.2, pulse ox 94% on room air. HEENT: Conjunctivae normal. NECK: No jugular venous distention. CARDIOVASCULAR: S1, S2 muffled. RESPIRATIONS: Breath sounds diminished in the bases. No rhonchi. No crackles. ABDOMEN is soft, nontender. LEGS are status post right knee arthroplasty. NERVOUS SYSTEM: No focal deficits. LABS: WBC 11.9, hemoglobin 11.2. ASSESSMENT: 1. Status post right total knee arthroplasty. 2. Asthma. 3. Gastroesophageal reflux disease. 4. Hypertension. 5. Hyperlipidemia. 6. History of degenerative joint disease. 7. History of deep vein thrombosis. 8. History of hypothyroidism. 9. Asthmatic bronchitis. 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 11.History of breast surgery. 12.History of cataracts. 13.Anxiety, depression. RECOMMENDATIONS AND DISCUSSION: Recommend to continue current medications, management and symptomatic treatment. I would also recommend Xarelto for 2 weeks followed by aspirin as well as DVT prophylaxis. The rest of the recommendations per Orthopedic Surgery and closely follow with Dr. Gallegos in the outpatient setting. Further recommendations to follow. MMODL / IJN: [id number] /
== END 2018-11-02 15:45 | disposition home health service (06) ==
LOC: OR 10:57 → 4SSUR 14:47 → OR 11-02 15:45
PROVIDERS: ATTEND Orthopaedic Surgery
DX: M17.11 Unilateral primary osteoarthritis, right knee (principal); M21.061 Valgus deformity, not elsewhere classified, right knee; I10 Essential (primary) hypertension; E78.5 Hyperlipidemia, unspecified; J45.909 Unspecified asthma, uncomplicated; K21.9 Gastro-esophageal reflux disease without esophagitis; E03.9 Hypothyroidism, unspecified; F41.9 Anxiety disorder, unspecified; F32.9 Major depressive disorder, single episode, unspecified; Z86.718 Personal history of other venous thrombosis and embolism; Z85.3 Personal history of malignant neoplasm of breast; Z79.890 Hormone replacement therapy; Z79.891 Long term (current) use of opiate analgesic; Z79.82 Long term (current) use of aspirin; Z79.899 Other long term (current) drug therapy; Z88.1 Allergy status to other antibiotic agents; Z88.0 Allergy status to penicillin; Z80.51 Family history of malignant neoplasm of kidney; Z80.42 Family history of malignant neoplasm of prostate; Z97.2 Presence of dental prosthetic device (complete) (partial)
CPT/HCPCS: 27447; 64448; 73560; 88300; 97161; 85025; C1713; C1776; C1772; J0171; J1100; J2405; J1885; J2795; J0735; J0690 ×2; J2250

== ENCOUNTER → 2019-06-14 | Outpatient (CLI) | payer MEDICARE ==
--- NOTE | 2019-06-15 11:28 | MM ---
Reason for exam: screening (asymptomatic). Last mammogram was performed 1 year and 1 month ago. History: Patient is postmenopausal and is nulliparous. Reductions of both breasts, 1960. Physical Findings: A clinical breast exam by your physician is recommended on an annual basis and results should be correlated with mammographic findings. MG 3D Screening Mammo W/Cad Bilateral CC and MLO view(s) were taken. Prior study comparison: May 02, 2018, bilateral MG 3d screening mammo w/cad. March 04, 2017, bilateral MG 3d screening mammo w/cad. There are scattered fibroglandular densities. There are benign appearing linear, vascular calcifications in the right breast. There is no discrete abnormality. ASSESSMENT: Benign, BI-RAD 2 RECOMMENDATION: Routine screening mammogram of both breasts in 1 year.
== END | disposition home or self-care (01) ==
LOC: RADMAMWWP 13:57
PROVIDERS: ATTEND Family Medicine
DX: Z12.31 Encounter for screening mammogram for malignant neoplasm of breast (principal)
CPT/HCPCS: 77063; 77067

== ENCOUNTER → 2020-07-09 | Outpatient (CLI) | payer MEDICARE ==
[~2020-07-09] MED LIST changes: +REGADENOSON 0.4 MG/5 ML SYRINGE IV PRN; -ROPIVACAINE 246.25 MG, EPINEPHrine 0.5 MG, KETOROLAC 30 MG, cloNIDine HCL/PF 80 MCG, WA... MISCELLANE ONE; -TRANEXAMIC ACID 1,000 MG in SODIUM CHLORIDE 0.9% 100 ML IVPB ONE; -ceFAZolin IN SWFI 2 GM/20 ML SYRINGE IVP ONE
--- NOTE | 2020-07-09 12:58 | EST ---
EXERCISE STRESS AGE: 75 SEX: Female HT: 5 ft. WT: 218 lbs. PROTOCOL: Lexiscan Cardiolite STAGE: N/A DURATION OF EXERCISE: 5 min. HEART RATE REST: 62 BLOOD PRESSURE REST: 143/83 MAXIMUM HEART RATE ACHIEVED: 78 MAXIMUM BLOOD PRESSURE: 143/83 85% MPHR: 123 100% MPHR: 145 METS: N/A INDICATIONS: Shortness of breath CLINICAL INFORMATION: Baseline EKG shows sinus rhythm, normal axis, normal intervals. Patient was given intravenous Lexiscan as per protocol. Did not have chest pain or diagnostic ST-segment depression. CONCLUSIONS: 1. Negative stress test by EKG criteria. 2. Cardiolite portion of the stress test will be reported separately. MMODL / IJN: [id number] /
--- NOTE | 2020-07-10 08:01 | NM ---
EXAMINATION TYPE: NM stress lexiscan cardiolite DATE OF EXAM: 07/09/2020 COMPARISON: NONE HISTORY: 75-year-old female with shortness of breath, hypertension, hypercholesterolemia, family hist ory, and asthma/bronchitis. TECHNIQUE: After the intravenous administration of 10.0 mCi Tc 99m Sestamibi - Cardiolite resting SP ECT images acquired 45 minutes post injection. The patient received 0.4mg Lexiscan, 24.9 mCi Tc 99m Sestamibi - Stress images obtained [address] injection FINDINGS: Review of stress and rest SPECT images demonstrates moderate to large sized reversibility along the i nferior wall extending from the base to the apex. Rest images show some decreased perfusion along the anterior, anteroseptal wall that does not persist on stress suggesting attenuation artifact. Gated a nalysis shows limited augmentation of the inferior wall and an estimated left ventricular ejection fr action of 71 %. TID is calculated at 1.1, towards the upper limits of normal. IMPRESSION: Moderate to large area of reversibility along the inferior wall suggests inducible ischemia. Further clinical correlation and workup as indicated.
== END | disposition home or self-care (01) ==
LOC: RADNMMAIN 07:56
PROVIDERS: ATTEND Nurse Practitioner
DX: R06.02 Shortness of breath (principal)
CPT/HCPCS: 93017; 78452; A9500; J2785

== ENCOUNTER 2020-07-29 06:32 | Day surgery (SDC) | payer MEDICARE ==
[2020-07-18 15:44] VITALS: BMI 43.5
[~2020-07-29 06:32] MED LIST changes: +ALPRAZolam 0.25 MG TAB PO PRN; +ALPRAZolam 0.5 MG TAB PO PRN; +ASPIRIN 325 MG TAB PO STA; +ATORVASTATIN 80 MG TAB PO STA; +HEPARIN SODIUM,PORCINE 10,000 UNIT in SODIUM CHLORIDE 0.9% 1,000 ML IRRIGATION PRN; +HEPARIN SODIUM,PORCINE 2,500 UNIT in SODIUM CHLORIDE 0.9% 250 ML IRRIGATION PRN; +NITROGLYCERIN SL TABS 0.4 MG TAB SUBLINGUAL PRN; -REGADENOSON 0.4 MG/5 ML SYRINGE IV PRN; +SODIUM CHLORIDE 0.9% 1,000 ML in EMPTY BAG 1 BAG IV ONE
[2020-07-29 07:00] VITALS: RESP 18; TEMP 98.3
[2020-07-29] MEDS ORDERED: fentaNYL (PF) 50 MCG/ML 2 ML AMP IV ONE (07:35)
[2020-07-29] MEDS ORDERED: fentaNYL (PF) 50 MCG/ML 2 ML AMP ONE (07:36)
[2020-07-29] MEDS ORDERED: MIDAZOLAM 2 MG/2 ML VIAL IV ONE (07:36)
[2020-07-29] MEDS ORDERED: LIDOCAINE 1% INJ 10MG/ML (20 ML MDV) SQ ONE (07:39)
[2020-07-29] MEDS ORDERED: IOPAMIDOL-370 125ML BTL INJ ONE (07:56)
[2020-07-29] MEDS ORDERED: RX INFO: IV CONTRAST WAS GIVEN 1 EACH MISC MISCELLANE PRN (08:04)
[2020-07-29] MEDS ORDERED: SODIUM CHLORIDE 0.9% 1,000 ML IV SCH (08:15)
--- NOTE | 2020-07-29 08:59 | CC ---
CARDIAC CATHETERIZATION REPORT INDICATION: Shortness of breath with abnormal stress test. PROCEDURE NOTE: After obtaining informed consent, left heart catheterization and coronary angiogram is performed via the right femoral artery using standard Alysha catheters. Patient tolerated the procedure well. We could not advance the Glidewire initially across the femoral artery. Due to this I used a Glidewire to traverse the into the aorta then we obtained a femoral angiogram and seems to be a small edge dissection right at the edge of the sheath, but it is global. There is good flow both distal and proximal. The patient does not have any symptoms and foot pulses are intact and I think it will close on its own. FINDINGS: 1. HEMODYNAMICS: Left ventricular end-diastolic pressure is 15 mm. There is no significant gradient across the aortic valve. 2. LEFT VENTRICULOGRAM: Left ventriculogram is not performed. 3. ANGIOGRAPHIC DATA: The Left Main Coronary Artery: Left main coronary artery is a normal-sized vessel and is free of stenosis. Divides into left anterior descending coronary artery and circumflex coronary artery. LAD and its branches, circumflex coronary artery and its branches are free of significant stenosis. This is the left dominant system. Right coronary artery shows mild to moderate atherosclerotic plaque throughout without any focal hemodynamically significant lesions. 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 PLAN: Patient's management is going to be in the form of risk factor modification and optimal medical therapy. I am going to obtain manual hemostasis and watch her for any evidence of vascular compromise and if she is stable with good distal pulses, we will let her go home and follow her in the office in the next few days. MMODL / IJN: [id number] /
[2020-07-29 15:42] VITALS: BP 122/62; PULSE 60
== END 2020-07-29 15:30 | disposition home or self-care (01) ==
LOC: CATHCVL 06:32
PROVIDERS: ATTEND Internal Medicine Cardiovascular Disease
DX: R94.39 Abnormal result of other cardiovascular function study (principal); I10 Essential (primary) hypertension; E78.5 Hyperlipidemia, unspecified; Z82.49 Family history of ischemic heart disease and other diseases of the circulatory system; Z96.641 Presence of right artificial hip joint; Z96.651 Presence of right artificial knee joint; E07.9 Disorder of thyroid, unspecified; M19.90 Unspecified osteoarthritis, unspecified site; Z79.82 Long term (current) use of aspirin; Z79.83 Long term (current) use of bisphosphonates; Z79.890 Hormone replacement therapy; Z79.891 Long term (current) use of opiate analgesic; Z79.899 Other long term (current) drug therapy; Z88.1 Allergy status to other antibiotic agents; Z88.0 Allergy status to penicillin
CPT/HCPCS: 93458; C1769 ×5; C1894; J2250; J2001; J3010; Q9967

== ENCOUNTER → 2020-11-19 | Outpatient (CLI) | payer MEDICARE | END | disposition home or self-care (01) ==

== ENCOUNTER → 2021-12-18 | Outpatient (CLI) | payer MEDICARE ==
--- NOTE | 2021-12-19 08:17 | MM ---
Reason for Exam: Screening (asymptomatic). Last mammogram was performed 1 year(s) and 1 month(s) ago. Patient History: Menarche at age 15. Patient has no children. Postmenopausal. Estrogen for 2 years from age 50 until age 52. 1960, Bilateral Reduction. Risk Values: Zo 5 year model risk: 1.8%. NCI Lifetime model risk: 3.6%. Prior Study Comparison: 05/02/2018 Bilateral Screening Mammogram, [facility]. 06/14/2019 Bilateral Screening Mammogram, [facility]. 11/19/2020 Bilateral Screening Mammogram, [facility]. Tissue Density: The breast tissue is almost entirely fat. Findings: Analyzed By CAD. There is no suspicious group of microcalcifications or new suspicious mass in either breast. Overall Assessment: Negative, BI-RAD 1 Management: Screening Mammogram of both breasts in 1 year. A clinical breast exam by your physician is recommended on an annual basis and results should be correlated with mammographic findings. Electronically signed and approved by: Vernon Rico DO
== END | disposition home or self-care (01) ==
LOC: RADMAMWWP 14:59
PROVIDERS: ATTEND Family Medicine
DX: Z12.31 Encounter for screening mammogram for malignant neoplasm of breast (principal); Z78.0 Asymptomatic menopausal state
CPT/HCPCS: 77063; 77067

== ENCOUNTER → 2022-03-12 | Outpatient (CLI) | payer MEDICARE ==
--- NOTE | 2022-03-12 15:39 | FL ---
EXAMINATION TYPE: FL barium swallow DATE OF EXAM: 03/12/2022 CLINICAL INDICATION: 76-year-old female unspecified dysphagia, R13.10. Patient reports sensation of s omething in her throat. History of acid reflux. Coughing at night. COMPARISON: None Total Fluoroscopy Time: 2 minutes 35 seconds. 69 images obtained. FINDINGS: The swallowing mechanism is normal. There is mild to moderate hypertrophy of the cricopharyngeus. Oth erwise, the hypopharyngeal anatomy is preserved. The thoracic esophagus has a tortuous course with moderate to severe tertiary peristaltic contraction s. There is delayed clearance from the distal esophagus with intermittent episodes of intraesophageal reflux. The mucosa is normal and no persistent filling defect is encountered. No fixed narrowing is seen. There is a small hiatal hernia noted. We are unable to elicit any gastroesophageal reflux with Valsal va or positional maneuvers during the course of the exam. IMPRESSION: 1. Mild to moderate CP muscle hypertrophy. 2. Presbyesophagus with moderate to severe tertiary peristaltic waves. 3. This results in delayed clearance from the lower esophagus along with intermittent episodes of int raesophageal reflux. 4. Small hiatal hernia. We were unable to visualize gastroesophageal reflux during the course of the exam.
== END | disposition home or self-care (01) ==
LOC: RADUSWWP 10:58
PROVIDERS: ATTEND Family Medicine
DX: R13.10 Dysphagia, unspecified (principal)
CPT/HCPCS: 74220

== ENCOUNTER 2022-05-28 07:26 | Day surgery (SDC) | payer MEDICARE ==
[2022-05-27 11:49] VITALS: BMI 43.0
[2022-05-28] MEDS ORDERED: ONDANSETRON 4 MG/2 ML VIAL IVP PRN (07:34)
[2022-05-28] MEDS ORDERED: LIDOCAINE 1% (10MG/ML) FOR IV START INTRADERMA PRN (07:34)
[2022-05-28] MEDS ORDERED: LACTATED RINGERS 1,000 ML IV SCH (07:34)
[2022-05-28 08:10] VITALS: RESP 16; TEMP 97.2
[2022-05-28] MEDS ORDERED: LIDOCAINE 2% INJ 20 MG/ML (2 ML VIAL) ONE (08:24)
[2022-05-28] MEDS ORDERED: PROPOFOL 10 MG/ML 20 ML VIAL IV ONE (08:24)
--- NOTE | 2022-05-28 08:36 | P.GSHP ---
History of Present Illness H&P Date: 05/28/22 Chief Complaint: Dysphagia This is a 76-year-old female who presents today for EGD. She's had issues with dysphagia and GERD. She is known to have a hiatal hernia. Past Medical History Past Medical History: Asthma, Deep Vein Thrombosis (DVT), Eye Disorder, GERD/Reflux, Hyperlipidemia, Hypertension, Osteoarthritis (OA), Thyroid Disorder Additional Past Medical History / Comment(s): Current difficulty swallowing food, thickening of breaux of larynx. Problems with left knee, uses cane. ASTHMATIC BRONCHITIS OCCASIONALLY. HX BLOOD CLOT IN LEFT LEG FROM AN INJURY, REMOVED SURGICALLY. HX CATARACTS. VARICOSE VEINS. Hashimotos. History of Any Multi-Drug Resistant Organisms: None Reported Past Surgical History: Breast Surgery, Section, Joint Replacement, Orthopedic Surgery, Tonsillectomy Additional Past Surgical History / Comment(s): CATARACTS REMOVED, BILATERAL CARPAL TUNNEL RELEASE, LEFT LEG BLOOD CLOT REMOVAL, BREAST REDUCTION, ORAL SURGERY, right knee and hip replacements. Past Anesthesia/Blood Transfusion Reactions: No Reported Reaction Past Psychological History: Anxiety, Depression Smoking Status: Never smoker Past Alcohol Use History: None Reported Past Drug Use History: None Reported - Past Family History Father Brother(s) Family Medical History: Cancer Father Family Medical History: Cancer Additional Family Medical History / Comment(s): Kidney and prostate cancer. Brother(s) Family Medical History: Cancer Additional Family Medical History / Comment(s): One brother had prostate cancer, another brother had lymphoma. Mother Family Medical History: Cancer Additional Family Medical History / Comment(s): Liver cancer. Medications and Allergies Home Medications Medication Instructions Recorded Confirmed Type Alendronate Sodium [Fosamax] 70 mg PO MO 06/26/16 05/28/22 History Aspirin [Adult Low Dose Aspirin EC] 81 mg PO HS 06/26/16 05/28/22 History DULoxetine HCL [Cymbalta] 60 mg PO HS 06/26/16 05/28/22 History Fexofenadine HCl [Dee Allergy] 180 mg PO HS 06/26/16 05/28/22 History HYDROcodone/APAP 7.5-325MG [Mulberry 1 tab PO BID PRN 06/26/16 05/28/22 History 7.5-325] Levothyroxine Sodium [Synthroid] 125 mcg PO QAM 06/26/16 05/28/22 History Simvastatin [Zocor] 40 mg PO HS 06/26/16 05/28/22 History Losartan Potassium [Cozaar] 25 mg PO QAM 10/25/18 05/28/22 History Metoprolol Succinate (ER) [Toprol 50 mg PO HS 10/25/18 05/28/22 History Xl] Albuterol Inhaler [Ventolin Hfa 1 puff INHALATION DAILY PRN 07/18/20 05/28/22 History Inhaler] Diclofenac Potassium [Cataflam] 50 mg PO DAILY 07/18/20 05/28/22 History Fluticasone Nasal [place] [Flonase 1 spray EA NOSTRIL HS 07/25/20 05/28/22 History Nasal [place]] Omeprazole 20 mg PO DAILY 05/27/22 05/28/22 History Allergies Allergy/AdvReac Type Severity Reaction Status Date / Time RADHA Inhibitors Allergy Unknown Verified 05/28/22 07:50 cefaclor [From Ceclor] Allergy Unknown Verified 05/28/22 07:50 cephalexin [From Keflex] Allergy Rash/Hives Verified 05/28/22 07:50 Penicillins Allergy Rash/Hives Verified 05/28/22 07:50 clindamycin AdvReac Severe Diarrhea Verified 05/28/22 07:50 Surgical - Exam Vital Signs Temp Pulse Resp BP Pulse Ox 97.2 F L 67 16 165/72 94 L 05/28/22 07:45 05/28/22 07:45 05/28/22 07:45 05/28/22 07:45 05/28/22 07:45 - General well developed, well nourished - Eyes PERRL - ENT normal pinna - Neck no masses - Respiratory normal expansion - Cardiovascular Rhythm: regular - Abdomen Abdomen: soft, non tender Assessment and Plan Assessment: GERD, perform EGD.
--- NOTE | 2022-05-28 08:44 | P.OP ---
Date of Procedure: 05/28/22 Preoperative Diagnosis: Dysphagia Postoperative Diagnosis: Mild antral gastritis Procedure(s) Performed: EGD Anesthesia: MAC Surgeon: Juan Donohue Pathology: other (Antrum, esophagus) Condition: stable Disposition: PACU Description of Procedure: The patient's placed on the endoscopy table in the lateral position. She received IV sedation. The gastro-/oropharynx passed in the esophagus and stomach. Scope was then placed through the pylorus. The first and second portion of the duodenum appeared normal. Scope was then brought back the antrum this. Mildly inflamed. A biopsies performed. The scope was then retroflexed and remainder the stomach appeared normal. The GE junction was at 47 is. There is no significant hiatal hernia seen. The distal esophagus appeared minimally inflamed and a biopsies performed. The proximal esophagus. Normal. Scope withdrawn for patient.
[2022-05-28 09:26] VITALS: BP 147/82; PULSE 56
== END 2022-05-28 09:37 | disposition home or self-care (01) ==
LOC: ORWHC2ENDO 07:26
PROVIDERS: ATTEND Surgery
DX: K29.50 Unspecified chronic gastritis without bleeding (principal); J45.909 Unspecified asthma, uncomplicated; I10 Essential (primary) hypertension; E78.5 Hyperlipidemia, unspecified; K21.9 Gastro-esophageal reflux disease without esophagitis; M19.90 Unspecified osteoarthritis, unspecified site; E07.9 Disorder of thyroid, unspecified; H57.9 Unspecified disorder of eye and adnexa; F41.8 Other specified anxiety disorders; Z98.82 Breast implant status; Z98.891 History of uterine scar from previous surgery; Z98.890 Other specified postprocedural states; Z90.89 Acquired absence of other organs; Z98.41 Cataract extraction status, right eye; Z98.42 Cataract extraction status, left eye; Z80.51 Family history of malignant neoplasm of kidney; Z80.42 Family history of malignant neoplasm of prostate; Z79.82 Long term (current) use of aspirin; Z79.899 Other long term (current) drug therapy; Z79.890 Hormone replacement therapy; Z79.51 Long term (current) use of inhaled steroids; Z88.1 Allergy status to other antibiotic agents; Z88.0 Allergy status to penicillin; Z88.8 Allergy status to other drugs, medicaments and biological substances
CPT/HCPCS: 88305; 43239; J2704; J2001

== ENCOUNTER → 2022-08-05 | Outpatient (CLI) | payer MEDICARE ==
--- NOTE | 2022-08-05 14:44 | CT ---
EXAMINATION TYPE: CT chest wo con DATE OF EXAM: 08/05/2022 COMPARISON: NONE at this hospital HISTORY: lung nodule per order. History of wheezing and out of breath for one month. History of asthm a and covid. CT DLP: 502.30 mGycm. Automated Exposure Control for Dose Reduction was Utilized. TECHNIQUE: CT scan of the thorax is performed without IV contrast. FINDINGS: LUNGS: Mild bibasilar linear scarring and/or atelectasis. No suspicious focal groundglass opacity or consolidation bilaterally. There is no pleural effusion or pneumothorax seen. The tracheobronchial tree is patent. MEDIASTINUM: Lack of IV contrast is noted to limit evaluation for mediastinal and especially hilar ad enopathy. There are no definitive greater than 1 cm mediastinal lymph nodes. Cardiomegaly is present. [id number] left atrial dilatation. No pericardial effusion is seen. Mira-fs-fhnxdrgi calcifica tion in the LAD distribution. Enlarged main pulmonary artery axial image 22 raises concern for underl chelsie pulmonary artery hypertension. Correlate clinically. OTHER: Dependent density consistent with sludge and/or small stones in gallbladder axial image 51. Mo yuhrhj-if-nmeobb multilevel spurring in the thoracic spine IMPRESSION: Mild bibasilar linear scarring and/or atelectasis. No suspicious acute pulmonary process. No suspicious pulmonary nodules or masses. Cardiomegaly with suggestion of underlying pulmonary bailey ry hypertension.
== END | disposition home or self-care (01) ==
LOC: RADCTMAIN 13:50
PROVIDERS: ATTEND Family Medicine
DX: I51.7 Cardiomegaly (principal); J45.909 Unspecified asthma, uncomplicated; R91.1 Solitary pulmonary nodule; Z86.16 Personal history of COVID-19
CPT/HCPCS: 71250

== ENCOUNTER → 2023-02-04 | Outpatient (CLI) | payer MEDICARE ==
--- NOTE | 2023-02-05 09:08 | MM ---
Reason for Exam: Screening (asymptomatic). Last mammogram was performed 1 year(s) and 1 month(s) ago. Patient History: Menarche at age 15. Patient has no children. Postmenopausal. Estrogen for 2 years from age 50 until age 52. 1960, Bilateral Reduction. Risk Values: Zo 5 year model risk: 1.8%. NCI Lifetime model risk: 3.4%. Prior Study Comparison: 06/14/2019 Bilateral Screening Mammogram, [facility]. 11/19/2020 Bilateral Screening Mammogram, [facility]. 12/18/2021 Bilateral MG 3D screening mammo w/cad, [facility]. Tissue Density: There are scattered fibroglandular densities. Findings: Analyzed By CAD. There is no suspicious group of microcalcifications or new suspicious mass in either breast. Benign-appearing calcifications noted. Overall Assessment: Benign, BI-RAD 2 Management: Screening Mammogram of both breasts in 1 year. . Patient should continue monthly self-breast exams. A clinical breast exam by your physician is recommended on an annual basis. This exam should not preclude additional follow-up of suspicious palpable abnormalities. Note on Zo scores and lifetime risk: 1. A Zo score greater than 3% is considered moderate risk. If this is the case, consider specialist referral to assess eligibility for a risk reducing agent. 2. If overall lifetime risk for the development of breast cancer is 20% or higher, the patient may qualify for future screening with alternating mammogram and breast MRI. Electronically signed and approved by: Sean Chan M.D. Radiologis
== END | disposition home or self-care (01) ==
LOC: RADMAMWWP 15:18
PROVIDERS: ATTEND Family Medicine
DX: Z12.31 Encounter for screening mammogram for malignant neoplasm of breast (principal); Z78.0 Asymptomatic menopausal state
CPT/HCPCS: 77063; 77067

== ENCOUNTER → 2024-04-05 | Outpatient (CLI) | payer MEDICARE ==
--- NOTE | 2024-04-06 14:40 | MM ---
Reason for Exam: Screening (asymptomatic). Last mammogram was performed 1 year(s) and 2 month(s) ago. Patient History: Menarche at age 15. Patient has no children. Postmenopausal. Estrogen for 2 years from age 50 until age 52. 1960, Bilateral Reduction. Risk Values: Zo 5 year model risk: 1.7%. NCI Lifetime model risk: 3.1%. Prior Study Comparison: 11/19/2020 Bilateral Screening Mammogram, [facility]. 12/18/2021 Bilateral MG 3D screening mammo w/cad, [facility]. 02/04/2023 Bilateral MG 3D screening mammo w/cad, [facility]. Tissue Density: There are scattered areas of fibroglandular density. Findings: Analyzed By CAD. There is no suspicious group of microcalcifications or new suspicious mass in either breast. Overall Assessment: Negative, BI-RAD 1 Management: Screening Mammogram of both breasts in 1 year. . Patient should continue monthly self-breast exams. A clinical breast exam by your physician is recommended on an annual basis. This exam should not preclude additional follow-up of suspicious palpable abnormalities. Note on Zo scores and lifetime risk: 1. A Zo score greater than 3% is considered moderate risk. If this is the case, consider specialist referral to assess eligibility for a risk reducing agent. 2. If overall lifetime risk for the development of breast cancer is 20% or higher, the patient may qualify for future screening with alternating mammogram and breast MRI. [facility], , 04/06/2024 2:37 PM. Electronically signed and approved by: Richie Guerin M.D. Radiologis
--- NOTE | 2024-04-07 11:05 | BD ---
EXAMINATION TYPE: Axial Bone Density DATE OF EXAM: 04/05/2024 CLINICAL HISTORY: 78 years old Female. ICD-10 CODE: Z78.0 POST MENOPAUSE , Additional History: Height: 59.5 Weight: 216.1 FRAX RISK QUESTIONS: Alcohol (3 or more units per day): no Family History (Parent hip fracture): no Glucocorticoids (More than 3mos): no (Ex: prednisone, prednisolone, methylprednisolone, dexamethasone, and hydrocortisone). History of Fracture in Adulthood: no Secondary Osteoporosis: 1. Type 1 Diabetes: no 2. Hyperthyroidism: no 3. Menopause before 45: no 4. Malnutrition: no 5. Chronic liver disease: no Rheumatoid Arthritis: no Current Tobacco Use: no RISK FACTORS HISTORY OF: Hip Fracture (Right/Left): no Spine Fracture: no History of Wrist Fracture: no Surgery to Spine/Hip(right/left)/Wrist (right/left): RT hip replacement When: 2017 MEDICATIONS: Thyroid Medications: Levothyroxine How Long: past 50 years Osteoporosis Medications: fosamax How Long: past 10 years EXAM MEASUREMENTS: Bone mineral densitometry was performed using the [employer]ernova System. Bone mineral density as measured about the Lumbar spine is: ----- L1-L4(G/cm2): 1.400 T Score Values are as follows: ----- L1: 0.9 ----- L2: 2.4 ----- L3: 2.9 ----- L4: 1.2 ----- L1-L4: 1.8 Z Score Values are as follows: ----- L1: 1.6 ----- L2: 3.1 ----- L3: 3.7 ----- L4: 2.0 ----- L1-L4: 2.5 Bone mineral density has: increased 22.4 % since study of: 11/19/2020 Bone mineral density about the L hip (g/cm2): 0.769 T Score values are as follows: -----L Neck: -2.2 -----L Total: -1.9 Z Score values are as follows: -----L Neck: -0.9 -----R Total: -0.7 -----L Total: Bone mineral density has: decreased -6.2 % since study of: 11/19/2020 FRAX%s: The graph provided illustrates a 14.3% chance for a major osteoporotic fx and a 4.2% chance f or the hips probability for fx in 10 years time. IMPRESSION: Osteopenia (T Score between -2.5 and -1). There is slightly increased risk of fracture and the patient may be considered for treatment. Re-Screen 2-5 years. NOTE: T-SCORE=SD OF THE YOUNG ADULT MEAN. [facility], , 04/07/2024 11:03 AM
== END | disposition home or self-care (01) ==
LOC: RADMAMWWP 13:05
PROVIDERS: ATTEND Family Medicine
DX: Z12.31 Encounter for screening mammogram for malignant neoplasm of breast (principal); Z78.0 Asymptomatic menopausal state; R92.323 Mammographic fibroglandular density, bilateral breasts; M85.80 Other specified disorders of bone density and structure, unspecified site
CPT/HCPCS: 77063; 77067; 77080